=== PATIENT | male | born 1995 | race African-American/Black ===

== ENCOUNTER 2017-05-04 15:26 | Emergency (ER) | payer MEDICAID ==
[~2017-05-04] VITALS: Ht 175.3 cm; Wt 72.6 kg
[2017-05-04 16:23] VITALS: BP 119/66
[2017-05-04] MEDS ORDERED: methylPREDNISolone SS 125 MG/2 ML VIAL IVP ONE (16:45)
[2017-05-04] MEDS ORDERED: ALBUTEROL SULFATE/IPRATROPIU 3 ML SOL IH ONE (16:45)
[2017-05-04 17:14] LABS: HEMATOCRIT 49.3 % (36-52); WHITE BLOOD COUNT (AUTO) 6.8 K/uL (4.8-10.8)
[2017-05-04 17:17] LABS: BASOPHILS # (AUTO) 0.3 K/uL (0.00-0.22); EOSINOPHILS # (AUTO) 0.3 K/uL (0-0.4); HEMOGLOBIN 15.5 g/dL (12.0-18.0); LYMPHOCYTES # (AUTO) 2.1 K/uL (2.0-11.5); MEAN CORPUSCULAR HEMOGLOBIN 28 pg (27-31); MEAN CORPUSCULAR HGB CONC 32 g/dL (33-37); MEAN CORPUSCULAR VOLUME 88 fL (80-94); MONOCYTES # (AUTO) 0.5 K/uL (0.8-1.0); NEUTROPHILS # (AUTO) 3.6 K/uL (1.8-7.7); PLATELET COUNT (AUTO) 263 K/uL (140-450); RED BLOOD CELL COUNT(AUTO) 5.59 MIL/uL (4.20-6.10)
[2017-05-04 17:44] LABS: ALBUMIN 4.3 g/dL (3.4-5.0); ANION GAP 15.4 (8-16); CARBON DIOXIDE 26.6 mmol/L (21-32); THYROID STIMULATING HORMONE 1.52 uIU/mL (0.34-3.74)
[2017-05-04 17:48] LABS: TOTAL BILIRUBIN 0.8 mg/dL (0.0-1.0)
[2017-05-04 18:30] VITALS: BP 106/61
== END 2017-05-04 18:30 | disposition home or self-care (01) ==
LOC: MED 15:26
DX: J45.901 Unspecified asthma with (acute) exacerbation (principal); M54.2 Cervicalgia
CPT/HCPCS: 36415; 71020; 80053; 84443; 85025; 87081; 93005; 94640; 96374; 99285; J2930; J7620

== ENCOUNTER 2018-08-26 13:01 | Emergency (ER) | payer MEDICAID ==
[~2018-08-26] VITALS: Ht 175.3 cm; Wt 78.0 kg
--- NOTE | 2018-08-26 13:09 | NUR ---
PT AMBULATES TO BED 11
--- NOTE | 2018-08-26 13:10 | NUR ---
NOtified er md mcneil of patient's condition
[2018-08-26 13:12] VITALS: BP 120/63
--- NOTE | 2018-08-26 13:31 | NUR ---
bib self with c/o right tesicular pain and swelling x 2 days. Patient deneis any recent injury, n/v/d, fevers, or penile discharge. Referred from [facility]. VSS; PATIENT POSITIONED FOR COMFORT; HOB ELEVATED; BEDRAILS UP X1; BED DOWN. ER MD MADE AWARE OF PT STATUS.
[2018-08-26] MEDS ORDERED: KETOROLAC 60 MG/2 ML VIAL IM ONE (14:35)
[2018-08-26] MEDS ORDERED: cefTRIAXone 1,000 MG in LIDOCAINE 1% ***ER ONLY *** 2.1 ML IM ONE (14:35)
[2018-08-26] MEDS ORDERED: cefTRIAXone 1,000 MG VIAL ONE (14:45)
[2018-08-26] MEDS ORDERED: LIDOCAINE MPF 1% - 5 mL VIAL 5 ML ONE (14:46)
--- NOTE | 2018-08-26 15:31 | NUR ---
Ultrasound still not done. tech advised only one tech on and busy with procedure in L&D. will be out shortly to complete ultrasound.
[2018-08-26 16:44] VITALS: BP 120/63
--- NOTE | 2018-08-26 16:47 | NUR ---
Patient discharged with v/s stable. Written and verbal after care instructions given and explained. Patient alert, oriented and verbalized understanding of instructions. Ambulatory with . All questions addressed prior to discharge. ID band removed. Patient advised to follow up with PMD. Rx of DOXYCYCLINE AND MOTRIN given. Patient educated on indication of medication including possible reaction and side effects. Opportunity to ask questions provided and answered.
[2018-08-26 18:08] LABS: APPEARANCE,URINE CLEAR (CLEAR); BILIRUBIN,URINE NEGATIVE (NEGATIVE); BLOOD, URINE TRACE-L (NEGATIVE); COLOR,URINE YELLOW (YELLOW); LEUKOCYTE ESTERASE ,URINE 1+ (NEGATIVE); NITRITE, URINE NEGATIVE (NEGATIVE); UGLUCOSE NEGATIVE (NEGATIVE)
[2018-08-26 18:12] LABS: RBC,URINE 11-20 (MOD) /HPF (0-5); WBC,URINE 6-15 (FEW) /HPF (0-5)
== END 2018-08-26 16:47 | disposition home or self-care (01) ==
LOC: MED 13:01
DX: N43.3 Hydrocele, unspecified (principal); N50.811 Right testicular pain; N39.0 Urinary tract infection, site not specified; J45.909 Unspecified asthma, uncomplicated
CPT/HCPCS: 76870; 81001; 87086; 96372; 99284; J0696; J1885; J2001; Q0092